=== PATIENT | male | born 1990 | race Caucasian/White ===

== ENCOUNTER 2017-07-23 16:08 | Emergency (ER) | payer OTHER ==
--- NOTE | 2017-07-23 16:22 | PDOC ---
Rapid Medical Evaluation Time Seen by Provider: 07/23/17 16:21 Medical Evaluation: 07/23/17 16:22 I have performed a brief in-person evaluation of this patient. The patient presents with a chief complaint of: Pertinent physical exam findings: I have ordered the following: The patient will proceed to the ED for further evaluation.
[2017-07-23 16:27] VITALS: BP 143/77; PULSE 87; TEMP 98.8; BMI 25.8
--- NOTE | 2017-07-23 16:50 | PDOC ---
Rapid Medical Evaluation Chief Complaint: RX Refill Time Seen by Provider: 07/23/17 16:21 Medical Evaluation: Allergies Allergy/AdvReac Type Severity Reaction Status Date / Time No Known Allergies Allergy Verified 07/23/17 16:27 Vital Signs Temp Pulse Resp BP Pulse Ox 98.8 F 87 20 143/77 98 07/23/17 16:21 07/23/17 16:21 07/23/17 16:21 07/23/17 16:21 07/23/17 16:21 07/23/17 16:42 I have performed a brief in-person evaluation of this patient. The patient presents with a chief complaint of: Here requesting refills, h/o ADHD, depression, anxiety on vyvanse (for ADHD), klonopin and buprenorphine- naloxone. States provider who give him rxs is in [place]. Based on ISTOP, last given 30 day supply of klonopin and vyvanse 06/23 by [facility] [facility], Juaquin Santos and prescribed 30 day supply of buprenorphine-nalaxone 07/[address] Uriah Hernandez Pertinent physical exam findings:stable I have ordered the following:nothing The patient will proceed to the ED for further evaluation. 07/23/17 16:55 Discharge Disposition - Diagnosis Prescription refill - Referrals - Patient Instructions - Post Discharge Activity
--- NOTE | 2017-07-23 17:19 | PDOC ---
History of Present Illness - General Chief Complaint: RX Refill Stated Complaint: RX REFILL Time Seen by Provider: 07/23/17 16:21 - History of Present Illness Initial Comments: 07/23/17 17:21 Best Contact: PCP: Dr. 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 Patient states he is taking: Klonopin 2 mg twice a day and Vyvanse 70 mg daily. Patient states he realized he ran out of medication this morning and found out this afternoon that his doctor who prescribes him the 2 medications are in [place]. Patient denies any complaints, headache, dizziness, chest pain, shortness of breath, abdominal pains. Patient has no medical complaints. Past History - Past Medical History Allergies/Adverse Reactions: Allergies Allergy/AdvReac Type Severity Reaction Status Date / Time No Known Allergies Allergy Verified 07/23/17 16:27 Home Medications: Ambulatory Orders Buprenorphine HCl/Naloxone HCl [Suboxone 8 mg-2 mg Sl Tablets] 1 each SL ASDIR 07/23/17 Clonazepam 2 mg PO DAILY #5 tablet MDD 1 07/23/17 Lisdexamfetamine Dimesylate [Vyvanse] 30 mg PO ASDIR 07/23/17 Lisdexamfetamine Dimesylate [Vyvanse] 70 mg PO DAILY #5 capsule MDD 1 07/23/17 clonazePAM [Klonopin -] 2 mg PO BID 07/23/17 COPD: No Psychiatric Problems: Yes (depression/ADHD) Other medical history: anxiety - Immunization History Immunization Up to Date: Yes - Suicide/Smoking/Psychosocial Hx Smoking History: Never smoked Have you smoked in the past 12 months: No Information on smoking cessation initiated: No Hx Alcohol Use: No Drug/Substance Use Hx: No Review of Systems - Review of Systems Able to Perform ROS?: Yes Comments:: 07/23/17 17:20 CONSTITUTIONAL: Absent: fever, chills, diaphoresis, generalized weakness, malaise, loss of appetite CARDIOVASCULAR: Absent: chest pain, loss of consciousness, palpitations, irregular heart rate, peripheral edema RESPIRATORY: Absent: cough, shortness of breath, dyspnea with exertion, orthopnea, wheezing, stridor, hemoptysis GASTROINTESTINAL: Absent: abdominal pain, abdominal distension, nausea, vomiting, diarrhea, constipation, melena, hematochezia SKIN: Absent: rash, itching, pallor Is the patient limited [place] proficient: No *Physical Exam - Vital Signs Last Vital Signs Temp Pulse Resp BP Pulse Ox 98.8 F 87 20 143/77 98 07/23/17 16:21 07/23/17 16:21 07/23/17 16:21 07/23/17 16:21 07/23/17 16:21 - Physical Exam Comments: 07/23/17 17:21 GENERAL: Well developed, well nourished. Awake and alert. No acute distress. CARDIOVASCULAR: Regular rate and rhythm. No murmurs, rubs, or gallops. Distal pulses are 2+ and symmetric. PULMONARY: No evidence of respiratory distress. Lungs clear to auscultation bilaterally. No wheezing, rales or rhonchi. MUSCULOSKELETAL Normal range of motion at all joints. No bony deformities or tenderness. No CVA tenderness. EXTREMITIES: No cyanosis. No clubbing. No edema. No calf tenderness. SKIN: Warm and dry. Normal capillary refill. No rashes. No jaundice. NEUROLOGICAL: Alert, awake, appropriate. Cranial nerves 2-12 intact. No deficits to light touch and temperature in face, upper extremities and lower extremities. No motor deficits in the in face, upper extremities and lower extremities. Normoreflexic in the upper and lower extremities. Normal speech. Toes are down- going bilaterally. Gait is normal without ataxia. PSYCHIATRIC: Cooperative. Good eye contact. Appropriate mood and affect. *DC/Admit/Observation/Transfer Diagnosis at time of Disposition: Prescription refill - Discharge Dispostion Disposition: HOME Condition at time of disposition: Stable Decision to Admit order: No - Prescriptions Prescriptions: Clonazepam 2 mg PO DAILY #5 tablet MDD 1 Lisdexamfetamine Dimesylate [Vyvanse] 70 mg PO DAILY #5 capsule MDD 1 - Referrals Referrals: Alis Hernandez MD [Primary Care Provider] - Enriqueta Martin MD [Staff Physician] - - Patient Instructions Printed Discharge Instructions: How to Refill a Prescription Additional Instructions: Follow-up with the psychiatrist listed on your discharge As per our conversation, it is the emergency departments deputy attorney general that we do not refill narcotics.. You will need to either follow-up with the psychiatrist listed on your discharge or find someone on the Internet that accept you as a patient Otherwise, please return back to the emergency department as needed - Post Discharge Activity
== END 2017-07-23 17:23 | disposition home or self-care (01) ==
LOC: JERFT 16:08
DX: Z76.0 Encounter for issue of repeat prescription (principal)
CPT/HCPCS: 99281-25